=== PATIENT | female | born 1945 | race Caucasian/White ===

== ENCOUNTER → 2019-07-07 | Day surgery (SDC) | payer MEDICARE ==
[2019-07-05 12:30] LABS: BASOPHILS # (AUTO) 0.1 (0.0-0.1); BASOPHILS % 0.8 % (0.0-1.0); EOSINOPHILS # (AUTO) 0.2 (0.0-0.4); EOSINOPHILS % 2.1 % (0.0-6.0); HEMATOCRIT 36.6 % (34.2-44.1); HEMOGLOBIN 11.8 g/dL (12.0-16.0); LYMPHOCYTES # (AUTO) 0.6 (1.0-3.2); LYMPHOCYTES % 7.5 % (18.0-39.1); MEAN CORPUSCULAR HGB CONC 32.2 g/dL (31-35); MEAN CORPUSCULAR VOLUME 89.9 fL (81-99); MONOCYTES # (AUTO) 0.9 (0.2-0.8); MONOCYTES % 11.5 % (4.4-11.3); NEUTROPHILS # (AUTO) 6.1 (2.1-6.9); NEUTROPHILS % 77.6 % (38.7-80.0); PLATELET COUNT 246 x10e3/uL (140-360); RED BLOOD COUNT 4.07 x10e6/uL (3.6-5.1); RED CELL DISTRIBUTION WIDTH 15.2 % (11.7-14.4)
--- NOTE | 2019-07-05 12:35 | Diagnostic Imaging Report ---
Exam: PA and lateral chest radiograph Clinical history: Preoperative clearance Findings: Moderate right pleural effusion with associated atelectasis is noted. The cardiac size is within normal limits. There is no evidence of pneumothorax. The regional osseous structures are unremarkable. Impression: 1. Moderate right pleural effusion. Signed by: Dr. Mikey Jessica MD on 07/05/2019 12:32 PM
[2019-07-05 13:01] LABS: ANION GAP 12.5 mmol/L (8-16); CREATININE, SERUM 1.08 mg/dL (0.57-1.11); POTASSIUM 4.5 mmol/L (3.5-5.1)
[~2019-07-07] MED LIST: ACETAMINOPHEN325 M1 PO; ALIGN4 MG PO; ALPRAZOLAM0.25 MG PO; AMOXAPINE25 MG PO; AMPYRA10 MG PO; ASPIRIN PO; BUPIVACAINE HCL 0.5% INJ 30 ML VIAL INJ ONE; CALCIUM MAG ZINC PO; CEFAZOLIN SOD 1 GM/NS 50ML 100 ML IV ONE; COLACE100 MG PO; DEXAMETHASONE SOD PHOS INJ 4 MG/ML VIAL ONE; ELLURA; EPHEDRINE SULFATE INJ 50 MG/10 ML SYR ONE; FLECAINIDE ACE100 MG PO; FLORAJEN460 MG PO; LASIX20 MG PO; LEVOTHYROXINE112 MCG PO; LIDOCAINE HCL 2% LOCAL INJ 5 ML SDV VIAL INJ ONE; METAXALONE800 MG PO; MUPIROCIN 2% OINT 22 GM TUBE ONE; OMEPRAZOLE40 MG PO; ONDANSETRO4 MG/UDTAB PO; ONDANSETRON HCL INJ 2MG/ML 2ML 2 MG/ML VIAL ONE; ONE DAILY MULT1 EAC1 PO; OSPHENA; PINDOLOL5 MG PO; PREDNISONE5 MG PO; PROGESTERONE100 MG PO; PROMETHAZINE HC25 M1 PO; PROPOFOL IV EMULSION 10 MG/ML 20 ML VIAL ONE; RANITIDINE HCL150 MG PO; RECLAST 55 MG/100 M IM; SEVOFLURANE INHAL SOLN 250 ML PEN BTL ONE; SPIRONOLACTONE25 MG PO; TROSPIUM CHLORI20 MG PO; TYMLOS SQ; VIIBRYD40 MG PO; VIT B PO; VIT C PO; VIT D PO; VIT E PO
--- OUTSIDE RECORDS SUMMARY | 2019-07-07 07:03 | XMS REPORT | Clinical Summary ---
Author Author [facility] Address Unknown Phone Unavailable Care Team Providers Care Precision Assembler Bench Name Role Phone Adan Sanders PCP Allergies Comments Active Allergy Reactions Severity Noted Date Ciprofloxacin 06/15/2014 Levofloxacin 06/15/2014 Sulfa (Sulfonamide 06/15/2014 Antibiotics) Medications End Date Status Medication Sig Dispensed Refills Start Date Active cholecalciferol, vitamin Take 2,000 0 D3, 2,000 unit Cap Units by mouth daily. Active trospium (SANCTURA) 20 mg Take 60 mg by 0 tablet mouth daily. Active levothyroxine (SYNTHROID, Take 112 mcg 0 LEVOTHROID) 112 MCG by mouth tablet Every morning on an empty stomach. Active furosemide (LASIX) 20 MG Take 20 mg by 0 tablet mouth daily. Active spironolactone Take 50 mg by 0 (ALDACTONE) 50 MG tablet mouth daily. Active ALPRAZolam (XANAX) 0.25 Take 0.25 mg 0 MG tablet by mouth every night as needed for Anxiety. Active ondansetron (ZOFRAN-ODT) Take 4 mg by 0 4 MG disintegrating mouth as tablet needed for Nausea. Active vilazodone (VIIBRYD) 40 Take 40 mg by 0 mg tablet mouth daily. Active ranitidine (ZANTAC) 150 Take 150 mg 0 MG tablet by mouth 2 (two) times daily. Active docusate sodium (COLACE) Take 100 mg 0 100 MG capsule by mouth 4 (four) times daily. Active predniSONE (DELTASONE) 1 Take 1 mg by 0 MG tablet mouth daily. Active acetaminophen (TYLENOL) Take 650 mg 0 650 MG CR tablet by mouth daily. Active aspirin 81 MG EC tablet Take 81 mg by 0 mouth daily. Active multivitamin per tablet Take 1 tablet 0 by mouth daily. Active BIFIDOBACTERIUM INFANTIS Take by mouth 0 (ALIGN ORAL) daily. Active metaxalone (SKELAXIN) 800 Take 800 mg 0 MG tablet by mouth as needed for Muscle spasms. Active pindolol (VISKEN) 5 MG Take 0.5 30 tablet 0 tablet tablets (2.5 7 mg total) by mouth 2 (two) times daily. 07/21/2018 flecainide (TAMBOCOR) 50 Take 1 tablet 30 tablet 0 MG tablet (50 mg total) 7 by mouth every 12 (twelve) hours. Active Problems Problem Noted Date Symptomatic PVCs 07/19/2017 Family History Medical History Relation Name Comments Heart disease Father Cancer Mother Relation Name Status Comments Father Mother Social History Date Tobacco Use Types Packs/Day Years Used Never Smoker Smokeless Tobacco: Never Used Alcohol Use Drinks/Week oz/Week Comments No Sex Assigned at Date Recorded Not on file Industry Job Start Date Occupation Not on file Not on file Not on file Travel End Travel History Travel Start No recent travel history available. Last Filed Vital Signs Not on file Plan of Treatment Not on file Results Not on fileafter 07/06/2018 Insurance Payer Benefit Subscriber ID Type Phone Address Plan / Group MEDICARE MEDICARE A xxxxxxxxxx Medicare B AETNA - MGD CARE AETNA xxxxxxxxxx Comm INDEMNITY NON CONTR
--- OUTSIDE RECORDS SUMMARY | 2019-07-07 07:03 | XMS REPORT | Clinical Summary ---
Author Author [facility] Address Unknown Phone Unavailable Care Team Providers Care Laborer Vineyard Name Role Phone Adan Sanders MD PCP Allergies Comments Active Allergy Reactions Severity Noted Date diarrhea Amoxicillin-Pot GI 07/24/2018 Clavulanate Intolerance Ciprofloxacin Swelling High 01/27/2010 Levofloxacin Swelling High 02/05/2011 Sulfa (Sulfonamide Swelling High 06/15/2014 Antibiotics) Medications End Date Status Medication Sig Dispensed Refills Start Date Active furosemide (LASIX) 20 MG TAKE ONE (1) 2 tablet TABLET(S) BY 6 MOUTH ONCE A DAY. Active spironolactone TAKE ONE (1) 2 (ALDACTONE) 50 MG tablet TABLET(S) BY 6 MOUTH EVERY MORNING. Active ALPRAZolam (XANAX) 0.25 Take 0.5 mg 0 MG tablet by mouth. Active predniSONE (DELTASONE) 5 Take 1 mg by 0 12/18/201 MG tablet mouth. 5 Active aspirin (ECOTRIN) 81 MG Take by 0 enteric coated tablet mouth. Active vilazodone (VIIBRYD) 40 0 201 mg tablet 3 Active Bacillus coagulans Take by 0 (PROBIOTIC, B. mouth. COAGULANS,) 10 billion cell capsule,delayed release(DR/EC) Active levothyroxine (SYNTHROID, Take 112 mcg 0 LEVOXYL) 112 mcg tablet by mouth. Active pindolol (VISKEN) 5 MG Take 2.5 mg 0 tablet by mouth 2 (two) times a day. Active flecainide (TAMBOCOR) 50 Take 50 mg by 0 MG tablet mouth 2 (two) times a day. Active cholecalciferol, vitamin Take 2,000 0 D3, (VITAMIN D3) 2,000 Units by unit capsule capsule mouth daily. Active docusate sodium (COLACE) Take 100 mg 0 100 MG capsule by mouth 2 (two) times a day. Active acetaminophen (TYLENOL) Take 650 mg 0 650 MG 8 hr tablet by mouth every 8 (eight) hours as needed for mild pain. Active PROMETHAZINE HCL Take 25 mg by 0 (PROMETHAZINE ORAL) mouth as needed. Active MULTIVITAMIN ORAL Take by 0 mouth. Active TYMLOS 80 mcg (3,120 INJECT 80MCG 6 Box 2 mcg/1.56 mL) pen SUBCUTANEOUSL 9 injectorIndications: Y EVERY DAY. Other osteoporosis without current pathological fracture Active pen needle, diabetic (BD USE TO 90 each 2 ULTRA-FINE SHORT PEN ADMINISTER 9 NEEDLE) 31 gauge x 5/16" TYMLOS needleIndications: Other osteoporosis without current pathological fracture 07/12/2018 Discontinued (Therapy completed) zoledronic acid (RECLAST) Infuse 5 mg 0 5 mg/100 mL solution into a venous catheter. 07/12/2018 Discontinued (Therapy completed) Bifidobacterium infantis Take by 0 (ALIGN) 4 mg capsule mouth. 02/06/2019 Discontinued (Reorder) abaloparatide (TYMLOS) 80 Inject 80 mcg 1 Box 11 mcg (3,120 mcg/1.56 mL) under the 8 pen injectorIndications: skin daily. Other osteoporosis without current pathological fracture 02/06/2019 Discontinued (Reorder) pen needle, diabetic 31 Use one 30 each 11 gauge x 5/16" needle daily 8 needleIndications: Other osteoporosis without current pathological fracture 07/11/2018 amoxicillin-pot Take 1 tablet 14 tablet 0 clavulanate (AUGMENTIN) by mouth 2 8 875-125 mg per tablet (two) times a day for 7 days. 07/29/2018 nitrofurantoin, Take 1 10 capsule 0 macrocrystal-monohydrate, capsule (100 8 (MACROBID) 100 MG capsule mg total) by mouth 2 (two) times a day for 5 days. Active Problems Problem Noted Date Other osteoporosis without current pathological fracture 01/24/2018 Poor balance 10/11/2017 Muscle spasm 08/15/2017 Neurogenic bladder 08/15/2017 Sacral insufficiency fracture 08/11/2017 Back pain 08/09/2017 Encounters Care Team Description Date Type Specialty Romi Freire MD 02/20/2019 Orders Only Urology Catracho Roberts MD Other osteoporosis without current pathological fracture 02/06/2019 Refill Endocrinology Carter Turk MD Liver cyst 11/03/2018 Hospital Radiology Encounter Carter Turk MD Liver, polycystic (Primary Dx) 10/25/2018 Transcribe Access Orders 08/08/2018 Hospital Radiology Encounter 08/08/2018 Hospital Radiology Encounter 08/08/2018 Hospital Radiology Encounter Romi Freire MD 07/26/2018 Telephone Urology Romi Freire MD 07/24/2018 Orders Only Urology Romi Freire MD Dysuria (Primary Dx) 07/21/2018 Clinical Urology Support Romi Freire MD 07/18/2018 Telephone Urology Catracho Roberts MD Other osteoporosis without current pathological fracture (Primary Dx) 07/12/2018 Office Visit Endocrinology Catracho Roberts MD Other osteoporosis without current pathological fracture 07/12/2018 Ancillary Radiology Procedure Camille Lyons MA Other osteoporosis without current pathological fracture (Primary Dx) 07/12/2018 Orders Only Endocrinology Alexandria Rushing 07/08/2018 Telephone Endocrinology after 07/06/2018 Family History Medical History Relation Name Comments Heart disease Father Multiple myeloma Mother Other Other CANCER/HEART PROBLEMS Relation Name Status Comments Father Mother Other Other Social History Date Tobacco Use Types Packs/Day Years Used Never Smoker Smokeless Tobacco: Never Used Drinks/Week oz/Week Comments Alcohol Use No Sex Assigned at Date Recorded Not on file Industry Job Start Date Occupation Not on file Not on file Not on file Travel End Travel History Travel Start No recent travel history available. Last Filed Vital Signs Reading Time Taken Comments Vital Sign 114/57 07/12/2018 10:45 AM CDT Blood Pressure 50 07/12/2018 10:45 AM CDT Pulse - - Temperature - - Respiratory Rate - - Oxygen Saturation - - Inhaled Oxygen Concentration 54.4 kg (120 lb) 11/03/2018 11:30 AM TUBE COVERER Weight 152.4 cm (5') 11/03/2018 11:30 AM TUBE COVERER Height 23.44 11/03/2018 11:30 AM TUBE COVERER Body Mass Index Plan of Treatment Care Team Description Date Type Specialty Catracho Roberts MD [address] [facility] [address] [place] [address] [phone] 07/17/2019 Appointment Radiology Catracho Roberts MD [address] [facility] [address] [place] [address] [phone] 07/17/2019 Office Visit Endocrinology Health Maintenance Due Date Last Done Comments BREAST CANCER SCREENING 1994 COLONOSCOPY SCREENING 1994 SHINGLES VACCINES (#1) 1994 65+ PNEUMOCOCCAL VACCINE 2009 (1 of 2 - PCV13) INFLUENZA VACCINE 06/08/2019 Implants Device Identifier Shelf Expiration Date Model / Serial / Lot Implanted Type Area Manufactur er 06/07/2019 [id number] / / [id number] Kit Cmnt Spinal Hiviscocty 11ml Spinal N/A: N/A DEPUY [employer] Plus - [id number] Implants SPINE Implanted: 08/11/2017 at [facility] (Quantity not on file) 05/07/2019 [id number] / / [id number] Kit Spinal Cmnt W/O Ndl Pmma Spinal N/A: N/A DEPUY [employer] Strl Ltxf - [id number] Implants SPINE Implanted: 08/11/2017 at [facility] (Quantity not on file) Procedures Comments Procedure Name Priority Date/Time Associated Diagnosis MRI ABDOMEN W WO CONTRAST Routine 11/03/2018 Liver cyst 12:18 PM TUBE COVERER POC CREATININE Routine 11/03/2018 11:47 AM TUBE COVERER ESTIMATED GFR Routine 11/03/2018 11:47 AM TUBE COVERER URINE CULTURE Routine 07/21/2018 Dysuria 3:03 PM CDT BONE SPECIFIC ALK Routine 07/12/2018 Other osteoporosis PHOSPHATASE 11:35 AM CDT without current pathological fracture BASIC METABOLIC PANEL Routine 07/12/2018 Other osteoporosis 11:35 AM CDT without current pathological fracture BONE DENSITY Routine 07/12/2018 Other osteoporosis 10:45 AM CDT without current pathological fracture after 07/06/2018 Results * MRI Abdomen W Wo Contrast (11/03/2018 12:18 PM TUBE COVERER) Specimen Narrative Performed At [facility] EXAMINATION:MRI ABDOMEN W WO CONTRAST CLINICAL HISTORY:K76.89 Other specified diseases of liver COMPARISON:January 06, 2018 TECHNIQUE: Multiplanar, multisequence MRI of the abdomen with and without intravenous gadolinium. FINDINGS: The liver demonstrates normal size and contour. There are numerous hepatic cysts scattered in both lobes, most of which are subcentimeter. The largest in segment 8 is 2.7 cm with thin septations. Another cyst at segment 7/8 junction measuring 2.4 cm demonstrates mildly irregular, lobulated margins similar to prior. No suspicious solid mass is seen. Tiny gallbladder stones. No biliary dilatation. Unremarkable pancreas and spleen. Simple cyst in the posterior right kidney measures 4.4 cm. No adrenal mass. No lymphadenopathy. Stable moderate right pleural effusion and resolved left pleural effusion. Postsurgical artifact in the hips. IMPRESSION: 1.Stable bilobar small hepatic cysts. 2.Cholelithiasis. [facility]-[id number] Procedure Note Interface, Radiology Results [facility] - 11/03/2018 1:25 PM TUBE COVERER EXAMINATION: MRI ABDOMEN W WO CONTRAST CLINICAL HISTORY: K76.89 Other specified diseases of liver COMPARISON: January 06, 2018 TECHNIQUE: Multiplanar, multisequence MRI of the abdomen with and without intravenous gadolinium. FINDINGS: The liver demonstrates normal size and contour. There are numerous hepatic cysts scattered in both lobes, most of which are subcentimeter. The largest in segment 8 is 2.7 cm with thin septations. Another cyst at segment 7/8 junction measuring 2.4 cm demonstrates mildly irregular, lobulated margins similar to prior. No suspicious solid mass is seen. Tiny gallbladder stones. No biliary dilatation. Unremarkable pancreas and spleen. Simple cyst in the posterior right kidney measures 4.4 cm. No adrenal mass. No lymphadenopathy. Stable moderate right pleural effusion and resolved left pleural effusion. Postsurgical artifact in the hips. IMPRESSION: 1. Stable bilobar small hepatic cysts. 2. Cholelithiasis. [facility]-[id number] Performing Organization Address City/State/Zipcode Phone Number [facility] [address] [place] [address] * Estimated GFR (11/03/2018 11:47 AM TUBE COVERER) Estimated GFR 40 (A) mL/min/1.73 m2 [facility] Comment: [facility] rpretation G1 >=90 Normal or high G2 60-89Mildly decreased O1d86-12 Mildly to moderately decreased T9o23-01 Moderately to severely decreased G4 15-29Severely decreased G5 <15Kidney failure The eGFR was calculated using the Chronic Kidney Disease Epidemiology Collaboration (CKD-EPI) equation. Interpretation is based on recommendations of the National Kidney Foundation-Kidney Disease Outcomes Quality Initiative (NKF-KDOQI) published in 2014. Specimen Blood Performing Organization Address City/[facility] Phone Number [facility] [place] [address] PATHOLOGY AND [facility] [address] * POC creatinine (11/03/2018 11:47 AM TUBE COVERER) Pathologist [facility] POC creatinine 1.3 (H) 0.5 - 0.9 mg/dl [facility] Comment: LATTER DAY Meter ID: [id number] H[facility] [employer] Melt Supervisor: Natalie Salas Specimen Blood Performing Organization Address [facility] Phone Number [facility] [place] [address] PATHOLOGY AND [facility] [address] * Urine culture (07/21/2018 3:03 PM CDT) Pathologist [facility] Urine culture Escherichia coli [facility] Greater than 100,000 colony forming units per mL (A) Comment: Cefazolin <=4 ug/mL Cefazolin with an AVINASH <=16 predicts susceptibility to the oral agents cefaclor, cefdinir, cefpodoxime, cefprozil, cefuroxime, cephalexin, and loracarbef when used for therapy of uncomplicated urinary tract infections due to E. coli, Klebsiella pneumoniae, and Proteus mirabilis. Specimen Urine Narrative Performed At Performed at: - [facility] [address] [place], [place] [id number] Field Education Director: Arnoldo Laureano MD, Phone:[phone] Antibiotic Method Susceptibility Organism Amoxicillin/Clavulanate S ug/mL: Susceptible Escherichia coli Ampicillin I ug/mL: Intermediate Escherichia coli Cefepime S ug/mL: Susceptible Escherichia coli Ceftriaxone S ug/mL: Susceptible Escherichia coli Cefuroxime S ug/mL: Susceptible Escherichia coli Ciprofloxacin S ug/mL: Susceptible Escherichia coli Ertapenem S ug/mL: Susceptible Escherichia coli Gentamicin S ug/mL: Susceptible Escherichia coli Imipenem S ug/mL: Susceptible Escherichia coli Levofloxacin S ug/mL: Susceptible Escherichia coli Meropenem S ug/mL: Susceptible Escherichia coli Nitrofurantoin S ug/mL: Susceptible Escherichia coli Piperacillin/Tazobactam S ug/mL: Susceptible Escherichia coli Tetracycline S ug/mL: Susceptible Escherichia coli Tobramycin S ug/mL: Susceptible Escherichia coli Trimethoprim/Sulfamethoxazole S ug/mL: Susceptible Escherichia coli Comment: Performed at:01 - [facility] [address], [id number] Field Education Director: Arnoldo Laureano MD, Phone:[phone] Performing Organization Address City/[facility] Phone Number [facility] * Bone specific alk phosphatase (07/12/2018 11:35 AM CDT) Pathologist [facility] Alkaline 10.4 5.6 - 29.0 mcg/L [facility] phosphatase, [facility] bone specific [facility] [place] Blood Narrative Performed At FASTING:NO [facility] FASTING: NO Resulting Agency Comment Performing Organization Information: Site ID: [id number] Name: [facility], Address: [address] [place] [id number] Director: Tova Stanley MD,PhD,AMADOR Performing Organization Address [facility] Phone Number [facility] [address] [place] [address] [facility] [place] [address] * Basic metabolic panel (07/12/2018 11:35 AM CDT) Pathologist [facility] Glucose 80 65 - 139 mg/dL [facility] Comment: DI[facility]NOSTICS Non-fasting [facility] reference interval BUN, whole 14 7 - 25 mg/dL [facility] blood [facility]AGNOSTICS [place] Creatinine 1.00 (H) 0.60 - 0.93 mg/dL [facility] Comment: DIAGNOSTICS For patients >49 years of age, [facility] the reference limit for Creatinine is approximately 13% higher for people identified as -Belarusian. EGFR Non-Afr. 56 (L) > OR=60 [facility] [place]ian mL/min/1.73m2 [facility] EGFR 65 > OR=60 [facility] [place] mL/min/1.73m2 [facility] BUN/creatinine 14 6 - 22 (calc) [facility] ratio [facility]AGNOSTICS [place] Sodium 140 135 - 146 mmol/L [facility] [place] Potassium 3.7 3.5 - 5.3 mmol/L [facility] [place] Chloride 101 98 - 110 mmol/L [facility] [place] CO2 32 20 - 32 mmol/L [facility] [place] Calcium 9.3 8.6 - 10.4 mg/dL [facility] [place] Specimen Blood Narrative Performed At FASTING:NO [facility] FASTING: NO Resulting Agency Comment Performing Organization Information: Site ID: [id number] Name: [facility] Address: [address] [place] [phone] Director: Floresita Galeana Performing Organization Address City/State/Zipcode Phone Number [facility] [place] [phone] * Bone Density (07/12/2018 10:45 AM CDT) Specimen Narrative Performed At [facility] [address] [place] [address] [address] [place] [address] Bone Density Report Name: Oriana Krishna Saturnino Sex: Female Age: 72 Ethnicity: White Height: 60.5 in Referring Provider: CATRACHO ROBERTS Date of : 1945 Weight: 123.4lb Indication: Osteoporosis Accession number: [id number] Bone Density: Exam date 07/12/2018 Region BMD (g/cm2) T-score Z-score Classification AP Spine(L1, L2, L3) 0.846 -1.60.7 Osteopenia Total Forearm(Left) 0.443 -2.5 -0.2 1/3 Forearm(Left) 0.543 -2.5 -0.1 UD Forearm(Left) 0.336 -1.8 -0.1 Total Forearm(Right) 0.432 -2.7 -0.4 1/3 Forearm(Right) 0.560 -2.20.2 UD Forearm(Right) 0.307 -2.4 -0.6 World Health Organization criteria for BMD impression classify patients as Normal (T-score at or above 1.0), Osteopenia (T-score between 1.0 and 2.5), or Osteoporosis (T-score at or below 2.5). Impression: History of hip fractures consistent with the clinical diagnosis of osteoporosis. The patient has osteoporosis based on the one third radius site. Discussion: Osteoporosis based on the one-third radius site. Hip fractures consistent with the clinical diagnosis of osteoporosis. Follow-Up: Consider repeating this study in 2 years to reassess this patient's status, or sooner if there is some new clinical indication. Reported by: Catracho Roberts MD, LILLY, VAL, FACP, CCD on 07/13/2018 6:34:00 AM. 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
[2019-07-07 10:20] VITALS: BP 148/95
--- NOTE | 2019-07-07 12:07 | Operative Report ---
DATE OF PROCEDURE: 07/07/2019 SURGEON: Jose Castillo DPM ROOM NUMBER: [facility]. POSTOPERATIVE DIAGNOSES: Rigidly contracted hammertoe 4th digit of the right foot with painful exostosis and chronic ulceration dorsal lateral aspect of the 4th digit of the right foot at the DIPJ level. POSTOPERATIVE DIAGNOSES: Rigidly contracted hammertoe 4th digit of the right foot with painful exostosis and chronic ulceration dorsal lateral aspect of the 4th digit of the right foot at the DIPJ level. TITLE OF THE OPERATIONS: 1. Arthroplasty of 4th digit of the right foot at the proximal interphalangeal joint level and then exostectomy with distal interphalangeal joint. 2. Arthroplasty of distal interphalangeal joint of the right foot with excision of the ulcer primarily and flap closure with human tissue allograft. ANESTHESIA: General endotracheal. HEMOSTASIS: Right ankle tourniquet at 250 mmHg. PROCEDURE IN DETAIL: The patient was taken to the operating room in a mildly sedated state, placed on the operating table in supine position. Following induction of general anesthetic, the right lower extremity was elevated to 60 degrees to exsanguinate for inflating the pneumatic ankle tourniquet to 250 mmHg to create good hemostasis. Right lower extremity was placed on the operating table prior to performing following procedure. Procedure #1: The treatment of the rigidly contracted 4th digit distal interphalangeal joint ulceration. The ulcerated area was initially debrided and then circumscribed and excised completely overlying the distal interphalangeal joint, where a large bony prominence was identified. After this ellipse, a flap was fashioned distally and proximally to allow for closure over the joint. The bone was smoothed down appropriately with an exostectomy and then actual transverse arthroplasty was performed with removal of the head of the intermediate phalanx, this allowed for excellent flaccidity to allow for closure of the flap, the area was irrigated with copious amounts of sterile saline solution and retention sutures were initially applied to maintain alignment for proximal procedures. With regard to the proximal interphalangeal joint, rigidly contracted hammertoe, a linear longitudinal incision was made overlying the proximal interphalangeal joint. The head of the proximal phalanx delivered in the surgical site and remodeled and removed utilizing oscillating saw. The area was irrigated with copious amounts of sterile saline solution, so now with both joints exposed and opened, proper alignment was assessed and it was determined that the best positioning would be served with a combination of human tissue allograft and no pinning. This patient is insensate and has a very high likelihood of recurrent ulcerations with rigidity in the toe. The area had been irrigated with copious amounts of sterile saline solution. Deep closure was 3-0 Vicryl with reapproximation of the extensor tendon overlying the head of the proximal phalanx, this allowed for excellent alignment. The distal phalanx was then re-evaluated and human tissue allograft applied to both joints. The ulcerated area with flap closure was now allowed to come together with deep closure of 3-0 Vicryl and skin closure of 4-0 nylon. After further injection, the areas were noted to be in excellent alignment. A release of the pneumatic ankle tourniquet showed normal hyperemic flush to all digits of the right foot. The patient tolerated both anesthetic and the procedure very well. BRENDAN Gipson/ALFA /[id number]
== END | disposition home or self-care (01) ==
LOC: OR 06:59
PROVIDERS: ATTEND Podiatrist Foot Surgery
DX: M20.41 Other hammer toe(s) (acquired), right foot (principal); M25.774 Osteophyte, right foot; M79.671 Pain in right foot; Z01.810 Encounter for preprocedural cardiovascular examination; Z01.812 Encounter for preprocedural laboratory examination; Z01.811 Encounter for preprocedural respiratory examination; Z88.1 Allergy status to other antibiotic agents; Z88.2 Allergy status to sulfonamides; E03.9 Hypothyroidism, unspecified; K58.1 Irritable bowel syndrome with constipation; K21.9 Gastro-esophageal reflux disease without esophagitis; I10 Essential (primary) hypertension; I73.9 Peripheral vascular disease, unspecified; J90 Pleural effusion, not elsewhere classified
CPT/HCPCS: 28124; 28285; 36415; 71046; 80048; 85025; 93005; C1713; J0690; J1100; J2001; J2405; J2704; 76000; Q4100